=== PATIENT | male | born 1990 | race Hispanic/Latino ===

== ENCOUNTER → 2016-04-11 | Day surgery (SDC) | payer OTHER ==
[~2016-04-11] VITALS: Ht 170.2 cm; Wt 68.0 kg
[~2016-04-11] MED LIST: ASPI325T PO; BACITRACIN OINT 30GM As Ordered ONE; BACITRACIN OINT 30GM TOP ONE; BACT800T5 PO; BACTRIM 160MG/800MG DS TAB PO SCH; BUPIVACAINE HCL 0.25% 30 ML VIAL As Ordered ONE; BUPIVACAINE HCL 0.25% 30 ML VIAL XX ONE; DOXY10CA PO; ESCI10TA2 PO; FLON1SPR; LIDOCAINE 1% SDV INJ 30 ML VIAL As Ordered ONE; LIDOCAINE 1% SDV INJ 30 ML VIAL XX ONE; LIDOCAINE 2% INJ 100 MG/5 ML SDV (FOR ANES.) As Ordered ONE; LR 1,000 ML IV SCH; MIDAZOLAM INJ 2 MG/2 ML VIAL (J2250) As Ordered ONE; OLAN10TA2 PO; ONDANSETRON 4MG/2ML VIAL (J2405) As Ordered ONE; ONDANSETRON 4MG/2ML VIAL (J2405) IV PRN; PERCOCET 5MG/325MG TAB As Ordered ONE; PERCOCET 5MG/325MG TAB PO PRN; PROPOFOL 200 MG/20 ML VIAL As Ordered ONE; REFR1DRO8 OU; SALI1GEL; TRAM-533 PO; dexameTHASONE 4 MG/ML 1ML VIAL (J1100) As Ordered ONE; ePHEDrine SULFATE 25 MG/5 ML(5MG/ML) SYRINGE As Ordered ONE; fentaNYL 100 MCG/2 ML INJECTION (J3010) IV PRN; fentaNYL 250 MCG/5 ML INJECTION (J3010) As Ordered ONE; traMADol 50 MG TAB PO PRN
[2016-04-11 16:30] VITALS: BP 127/69
--- NOTE | 2016-04-12 13:31 | RO ---
DATE OF PROCEDURE: 04/11/2016 PREOPERATIVE DIAGNOSIS: Phimosis. POSTOPERATIVE DIAGNOSIS: Phimosis. FINDINGS: Phimosis. PROCEDURE: Circumcision. SURGEON: Dr. Fritz Bray. TIRE AND TUBE REPAIRER: None. ANESTHESIA: General. COMPLICATIONS: None. ESTIMATED BLOOD LOSS: N/A. HISTORY OF PRESENT ILLNESS: 25-year-old male patient that has history of phimosis. For this reason, he has consented for a circumcision. DESCRIPTION OF PROCEDURE: In a patient under general anesthesia in supine position, after prepping and draping the area of concern, which included the entire genitalia and abdomen, we started by doing a penile block with Marcaine 0.25% and lidocaine 2%, total of 10 mL used. We then proceeded to do incision in the dorsal aspect of the pinpoint foreskin phimosis. We then proceeded to actually hattie the foreskin and we could actually clean it with Betadine very well. At that moment in time, we did our circumferential incision 1 cm away from the sulcus of the glans and then another circumferential incision 4 cm proximal to the base and we resected for foreskin between the two incision lines. We fulgurated bleeding vessels. We sent the foreskin for permanent pathology analysis. After this, we approximated both skin borders with Chromic #3-0 separate stitches. We then placed bacitracin cream, 4 x 4 and a Coban around the penis. PLAN: The patient will pass to recovery and be sent home with antibiotic and pain medication. Followup in 3-4 days at [facility] for removal of Coban. He may not have sexual intercourse for 1 week. He cannot shower for 3 days. There were no complications during surgery.
== END | disposition home or self-care (01) ==
LOC: M SDC 09:21
PROVIDERS: ATTEND Urology
DX: N47.1 Phimosis (principal); Z88.8 Allergy status to other drugs, medicaments and biological substances
CPT/HCPCS: 54161; 88304; J0690; J1100; J2250; J2405; J3010

== ENCOUNTER 2016-06-04 08:27 | Inpatient (IN) | payer OTHER ==
[~2016-06-04] VITALS: Ht 172.7 cm; Wt 66.2 kg
[~2016-06-04 08:27] MED LIST changes: -BACITRACIN OINT 30GM As Ordered ONE; -BACITRACIN OINT 30GM TOP ONE; -BACTRIM 160MG/800MG DS TAB PO SCH; -BUPIVACAINE HCL 0.25% 30 ML VIAL As Ordered ONE; -BUPIVACAINE HCL 0.25% 30 ML VIAL XX ONE; -LIDOCAINE 1% SDV INJ 30 ML VIAL As Ordered ONE; -LIDOCAINE 1% SDV INJ 30 ML VIAL XX ONE; -LIDOCAINE 2% INJ 100 MG/5 ML SDV (FOR ANES.) As Ordered ONE; -LR 1,000 ML IV SCH; -MIDAZOLAM INJ 2 MG/2 ML VIAL (J2250) As Ordered ONE; -ONDANSETRON 4MG/2ML VIAL (J2405) As Ordered ONE; -ONDANSETRON 4MG/2ML VIAL (J2405) IV PRN; -PERCOCET 5MG/325MG TAB As Ordered ONE; -PERCOCET 5MG/325MG TAB PO PRN; -PROPOFOL 200 MG/20 ML VIAL As Ordered ONE; -dexameTHASONE 4 MG/ML 1ML VIAL (J1100) As Ordered ONE; -ePHEDrine SULFATE 25 MG/5 ML(5MG/ML) SYRINGE As Ordered ONE; -fentaNYL 100 MCG/2 ML INJECTION (J3010) IV PRN; -fentaNYL 250 MCG/5 ML INJECTION (J3010) As Ordered ONE; -traMADol 50 MG TAB PO PRN
[2016-06-04] MEDS ORDERED: OPTI0.5D5 OU (09:02)
[2016-06-04] MEDS ORDERED: KETO0.02 OU ×2 (09:02→15:18)
[2016-06-04 09:49] LABS: BASO % 0.1 % (0.0-1.0); EOS % 0.4 % (0.0-3.0); LARGE UNSTAINED CELL # 0.2 K/mm3 (0.0-0.4); LARGE UNSTAINED CELL % 2.4 % (0.0-4.0); LYMPH # 1.4 K/mm3 (1.5-6.5); LYMPH % 18.3 % (24.0-44.0); MEAN CORPUSCULAR HEMOGLOBIN 26.2 pg (27.0-33.0); MEAN CORPUSCULAR HGB CONC 33.3 g/dl (32.0-36.5); MEAN CORPUSCULAR VOLUME 78.6 fl (80.0-96.0); MONO # 0.5 K/mm3 (0.0-0.8); MONO % 5.7 % (0.0-5.0); NEUTROPHILS # 5.7 K/mm3 (1.8-7.7); NEUTROPHILS % 73.1 % (36.0-66.0); PLATELET COUNT, AUTOMATED 225 k/mm3 (150-450); RED CELL DISTRIBUTION WIDTH 12.4 % (11.5-14.5); WHITE BLOOD COUNT 7.8 K/mm3 (4.0-10.0)
--- NOTE | 2016-06-04 10:04 | REP ---
PORTABLE CHEST X-RAY: Single view. HISTORY: Altered mental status. Comparison study March 01, 2016. FINDINGS: EKG monitoring electrodes overlie the chest. The lungs well inflated and clear. Heart is not enlarged. Pulmonary vasculature is not increased. No bony abnormalities seen. IMPRESSION: Negative portable chest x-ray. Signed by Jeremiah Franz MD 06/04/2016 02:28 P
[2016-06-04 10:10] LABS: ALBUMIN 4.1 GM/DL (3.2-5.2); ALBUMIN/GLOBULIN RATIO 0.91 (1.00-1.93); ALKALINE PHOSPHATASE 76 U/L (45-117); ALT/SGPT 22 U/L (12-78); ANION GAP 11 MEQ/L (8-16); AST/SGOT 5 U/L (15-37); BILIRUBIN,DIRECT 0.2 MG/DL (0.0-0.2); BLOOD UREA NITROGEN 11 MG/DL (7-18); CALCIUM LEVEL 8.8 MG/DL (8.5-10.1); CARBON DIOXIDE LEVEL 25 MEQ/L (21-32); CHLORIDE LEVEL 106 MEQ/L (98-107); CREATININE FOR GFR 1.22 MG/DL (0.70-1.30); GLOMERULAR FILTRATION RATE > 60.0 (>60); GLUCOSE, FASTING 109 MG/DL (70-105); POTASSIUM SERUM 3.3 MEQ/L (3.5-5.1); SODIUM LEVEL 142 MEQ/L (136-145); TOTAL PROTEIN 8.6 GM/DL (6.4-8.2)
--- NOTE | 2016-06-04 10:15 | REP ---
Head CT without contrast: History: Altered mental status. Comparison study: March 01, 2016. CT findings: Bone window settings demonstrate an intact bony calvarium. There is no evidence of skull fracture or incidental bony calvarial lesion. The visualized paranasal sinuses appear clear. No intraorbital abnormality is seen. On soft tissue window setting images; the lateral, third, and fourth ventricles are normal in size and position. Souza-white differentiation pattern is normal above and below the tentorium. There are is no evidence of intracranial hemorrhage. No mass, edema, infarction, or midline shift is seen. No extra-axial fluid collection is appreciated. Impression: Negative noncontrast head CT. Signed by Jeremiah Franz MD 06/04/2016 10:07 A
[2016-06-04 10:18] LABS: METHADONE URINE NEGATIVE (NEGATIVE)
[2016-06-04 10:19] LABS: CONTROL LINE INT CTR LINE PRESENT; TRICYCLIC ANTIDEPRESS URINE NEGATIVE (NEGATIVE)
[2016-06-04] MEDS ORDERED: ONDANSETRON 4MG/2ML VIAL (J2405) IV PRN (15:15)
[2016-06-04] MEDS ORDERED: POTASSIUM CHLORIDE 10 MEQ SR TABLET PO ONE (15:30)
--- NOTE | 2016-06-04 15:35 | HPE ---
DATE OF ADMISSION: 06/04/2016 This is a patient of [facility]. Chief complaint is loss of consciousness. The following is a summary of his presentation: This is a 26-year-old who has been undergoing workup for repeated loss of consciousness. He has lost consciousness three times. He has been following with a neurologic workup and was thought to have some sort of perhaps narcolepsy, had been seen at Dr. Sampson's office. Last night was feeling well, was at home watching Netflix, the next thing he knows he is in the emergency department today. He has had a headache for about a week, it is not unusual for him to have a headache. He says he has not been taking Tylenol for it, although his Tylenol level is elevated. Past medical history is notable for phimosis and suicidal ideation with admission. Past surgical history is notable for circumcision. Home medications are listed as: - Refresh eye drops ALLERGIES: He has an allergy listed to AMITRIPTYLINE. Socially, he denies smoking or alcohol. He is active duty in the [employer]. Family history is notable for a mother and father, who he is unaware of their health status. Review of systems is somewhat limited but he has generalized headache which is throbbing, not better or worse, not associated with neck pain or stiffness. No fever or chills. He has been eating and drinking. No abdominal pain. No chest pain. No change in bowel or bladder habits. No focal weakness. Does not know if he has had seizures. Otherwise unremarkable. On physical exam, temperature was 100 upon arrival, has not been rechecked, heart rate 80, respiratory rate 18, blood pressure 133/62. He is awake and appropriately interactive, pleasantly conversant, somewhat flattened affect. Head is normocephalic. Sinuses are nontender. Pupils equally round and reactive, anicteric, noninjected. Nasal septum is midline. Mucous membranes moist. Neck supple, no cervical or supraclavicular adenopathy. Breathing is symmetrical and rested, I:E ratio is 1:3. No wheezes, rales, or rhonchi. Heart is in regular rate and rhythm, not tachycardic. Abdomen soft, doughy, nontender. No lower extremity edema. Strength is symmetrical in upper and lower extremities. Cranial nerves II-XII are grossly intact. White cell count 7.8, hemoglobin 13.9, and platelets 225. Sodium 142, potassium 3.3, chloride 106, carbon dioxide 25, BUN 11, creatinine 1.22. Urinalysis is notable for 2+ blood with a Cramer catheter in place. His salicylate level is less than 1.7. Tylenol level is 38. Ethyl alcohol level is 0.06. Rest of the toxicology screen is negative. Chest xray is remarkably unremarkable. Head CT is negative. My assessment is as follows: This is a 26-year-old with unresponsive episode, currently undergoing neurologic workup. Patient will require a two midnight hospital stay for further diagnostic study and workup. Plan will be as follows: 1. Neurologic. Patient had an unresponsive episode and apparently had an MRI done as an outpatient, may or may not have had an EEG done as an outpatient. Not on any antiepileptic drugs. Will consult neurology and put him on seizure precautions. Also will continue on telemetry. There is not a good family history so cannot rule out any cardiac findings. He has had previous EKGs but has never had an echocardiogram, which will be ordered to look for structural heart disease, which I believe findings for that will be negative. 2. Patient has an elevated Tylenol level. Will repeat the level at 4 hours and consider Mucomyst dosing. He does have a history of suicidal ideation and the thought that this could be an overdose does occur to me. 3. Deep venous thrombosis (DVT) prophylaxis has been ordered. 4. This patient will be signed out to Dr. Thierry Espinal.
[2016-06-04] MEDS: NS 1,000 ML IV SCH ×2 (15:40→21:44)
[2016-06-04] MEDS ORDERED: ACETYLCYSTEINE 20% 30 ML VIAL PO ONE (16:00)
[2016-06-04] MEDS ORDERED: ACETYLCYSTEINE 20% 30 ML VIAL PO SCH (20:00)
--- NOTE | 2016-06-04 20:41 | ECGEPIP ---
Stationary ECG Study [facility] - ED Test Date: 2016-06-04 Pat Name: PRETTY JO Department: Room: - Gender: M Hide Examiner: CHANDRA : 1990 Requested By: PANFILO Delacruz Order Number: [id number] Reading MD: Aiden Morton Measurements Intervals [place] Rate: 84 P: 67 KS: 156 QRS: 71 QRSD: 107 T: 53 QT: 346 QTc: 410 Interpretive Statements SINUS RHYTHM WITH SINUS ARRHYTHMIA LAE EARLY REPOLARIZATION SIMILAR TO 03/02/16 Electronically Signed On 06-04-2016 20:40:56 EST by Aiden Morton
[2016-06-04 21:17] VITALS: BP 135/94
[2016-06-04 23:59] VITALS: BP 134/74
[2016-06-05] MEDS ORDERED: ACETYLCYSTEINE IV ONE (01:30)
[2016-06-05] MEDS ORDERED: D5W IV ONE (01:30)
[2016-06-05 03:56] VITALS: BP 147/85
[2016-06-05 05:30] LABS: MEAN CORPUSCULAR HEMOGLOBIN 26.1 pg (27.0-33.0); MEAN CORPUSCULAR HGB CONC 33.1 g/dl (32.0-36.5); MEAN CORPUSCULAR VOLUME 78.9 fl (80.0-96.0); RED CELL DISTRIBUTION WIDTH 12.7 % (11.5-14.5); WHITE BLOOD COUNT 8.4 K/mm3 (4.0-10.0)
[2016-06-05] MEDS ORDERED: ACETYLCYSTEINE 6,600 MG in D5W 1,000 ML IV ONE (05:30)
--- NOTE | 2016-06-05 05:41 | ECHO ---
DATE OF PROCEDURE: 06/04/2016 REFERRING PHYSICIAN: Dr. Francisco Dutton. INDICATION: Syncope. HEIGHT: 67 inches. WEIGHT: 146 pounds. MEASUREMENTS: Aortic root: 2.6 cm Proximal ascending aorta: 2.8 cm Left atrium: 2.3 cm Left ventricle diastole: 4.2 cm Left ventricle systole: 2.7 cm Ventricular septum: 0.89 cm Posterior wall: 0.86 cm Inferior vena cava: 1.7 cm with much greater than 50% respiratory variation. DOPPLER MEASUREMENTS: Aortic valve velocity: 128 cm/s LVOT velocity: 127 cm/s LVOT VTI: 23.2 cm Mitral E velocity: 70.7 cm/s Mitral A velocity: 35.6 cm/s Very mild tricuspid regurgitation Estimated right ventricular systolic pressure 17 mmHg assuming an atrial pressure of 5 mmHg. Pulmonary artery systolic pressure 12 mmHg by pulmonary acceleration time method. MITRAL ANNULAR TISSUE DOPPLER: E-prime lateral: 14.0 cm/s E-prime septal: 11.2 cm/s DESCRIPTION: Rhythm was sinus. Image quality was fair. No pericardial effusion. This was a 2D, M-m0de, color flow Doppler and pulsed wave Doppler examination and included mitral annular tissue Doppler. CONCLUSIONS: 1. Normal echocardiogram Doppler. 2. Normal LV internal dimensions and wall thickness. Normal LV systolic function. LVEF 65% by visual estimate. No regional wall motion abnormalities. Normal LV diastolic function.
[2016-06-05 05:53] LABS: ALBUMIN 3.6 GM/DL (3.2-5.2); ALBUMIN/GLOBULIN RATIO 1.09 (1.00-1.93); ALKALINE PHOSPHATASE 57 U/L (45-117); ALT/SGPT 16 U/L (12-78); ANION GAP 8 MEQ/L (8-16); AST/SGOT 12 U/L (15-37); BLOOD UREA NITROGEN 8 MG/DL (7-18); CALCIUM LEVEL 8.5 MG/DL (8.5-10.1); CARBON DIOXIDE LEVEL 27 MEQ/L (21-32); CHLORIDE LEVEL 106 MEQ/L (98-107); CREATININE FOR GFR 1.05 MG/DL (0.70-1.30); GLOMERULAR FILTRATION RATE > 60.0 (>60); GLUCOSE, FASTING 107 MG/DL (70-105); POTASSIUM SERUM 3.7 MEQ/L (3.5-5.1); SODIUM LEVEL 141 MEQ/L (136-145); TOTAL PROTEIN 6.9 GM/DL (6.4-8.2)
[2016-06-05 07:50] VITALS: BP 129/73
[2016-06-05] MEDS: ENOXAPARIN 40 MG/0.4 ML SYRINGE (J1650) SC SCH (08:43)
--- NOTE | 2016-06-05 11:12 | IPNPDOC ---
Subjective Date Seen The patient was seen on 06/05/16. Subjective Chief Complaint/HPI The patient is a 26-year-old male admitted with a reason for visit of AMS. General: Denies: Chills, Night Sweats Constitutional: Denies: Chills, Fever Eyes: Denies: Pain, Vision change ENT: Denies: Ear Pain, Head Aches Skin: Denies: Lesions, Rash Pulmonary: Denies: Cough, Dyspnea Cardiovascular: Denies: Chest Pain, Palpitations Gastrointestinal: Denies: Nausea, Vomiting Genitourinary: Denies: Dysuria, Frequency Hematologic: Denies: Bleeding Excessively, Bruising Objective Physical Examination General Exam: Positive: Alert, Cooperative, No Acute Distress ENT Exam: Positive: Atraumatic, Mucous membr. moist/pink Neck Exam: Negative: JVD Chest Exam: Positive: Clear to auscultation, Normal air movement Heart Exam: Positive: Normal S1, Normal S2, Rate Normal Telemetry: Positive: Sinus Abdomen Exam: Positive: Soft, Negative: Tenderness Extremity Exam: Negative: Edema, Tenderness Assessment /Plan Plan/VTE VTE Prophylaxis Ordered?: Yes Plan/Urinary Catheter Reason for insertion/continuin: Other-document below Plan Episode of Unresponsiveness 2/2 Unclear Etiology Apparently the patient has had an extensive outpatient neurological workup for such events with Dr. Sampson of neurology including an MRI, and an EEG which did not reveal any acute findings. Of note, the patient has had multiple events such as this one, which have required him to be hospitalized. The patient was recently seen here for a similar presentation, with concern for a possible overdose at the time back in March/2016, during which the patient was admitted to the inpatient mental health unit after being medically cleared. At this time, the patient denies taking any medications-however he is noted to have an elevated serum acetaminophen level on admission. He denies taking any Tylenol for over 2 months. Neurology consulted in the ER, they have recommended a repeat EEG We will obtain a psychiatric consultation in view of the patient's unclear presentation, elevated Tylenol levels, and history of overdose. Status post Mucomyst 3 2-D echocardiogram here noted to be within normal limits We will continue to monitor the patient on telemetry for now. VS, I&O, 24H, Fishbone Vital Signs/I&O Vital Signs Date Time Temp Pulse Resp B/P Pulse Ox O2 Delivery O2 Flow Rate FiO2 06/05/16 07:50 96.8 52 20 129/73 98 Room Air I&O- Last 24 Hours up to 6 AM 06/05/16 06:00 Intake Total 240 ml Output Total 250 ml Balance -10 ml Laboratory Data 24H LABS Laboratory Tests 2 06/04/16 15:14: Acetaminophen Level 20.2 06/05/16 05:18: Blood Urea Nitrogen 8, Creatinine 1.05, Sodium Level 141, Potassium Level 3.7, Chloride Level 106, Carbon Dioxide Level 27, Calcium Level 8.5, Aspartate Amino Transf (AST/SGOT) 12L, Alanine Aminotransferase (ALT/SGPT) 16, Alkaline Phosphatase 57, Total Bilirubin 1.0, Total Protein 6.9, Albumin 3.6, Albumin/ Globulin Ratio 1.09, Anion Gap 8, Glomerular Filtration Rate > 60.0, Magnesium Level 2.0 CBC/BMP Laboratory Tests 06/05/16 05:18 Calcium Level 8.5, Aspartate Amino Transf (AST/SGOT) 12 L, Alanine Aminotransferase (ALT/SGPT) 16, Alkaline Phosphatase 57, Total Bilirubin 1.0, Total Protein 6.9, Albumin 3.6, Red Blood Count 5.24, Mean Corpuscular Volume 78.9 L, Mean Corpuscular Hemoglobin 26.1 L, Mean Corpuscular Hemoglobin Concent 33.1, Red Cell Distribution Width 12.7 JYOTSNA BRADY MD Jun 05, 2016 11:12
[2016-06-05 12:00] VITALS: BP 121/67
[2016-06-05 15:30] VITALS: BP 131/65
[2016-06-05 20:00] VITALS: BP 117/71
[2016-06-05 23:59] VITALS: BP 147/68
[2016-06-06 04:00] VITALS: BP 123/68
[2016-06-06 05:57] LABS: MEAN CORPUSCULAR HEMOGLOBIN 26.1 pg (27.0-33.0); MEAN CORPUSCULAR HGB CONC 32.5 g/dl (32.0-36.5); MEAN CORPUSCULAR VOLUME 80.4 fl (80.0-96.0); RED CELL DISTRIBUTION WIDTH 12.8 % (11.5-14.5); WHITE BLOOD COUNT 7.3 K/mm3 (4.0-10.0)
[2016-06-06 06:22] LABS: ALBUMIN 3.7 GM/DL (3.2-5.2); ALBUMIN/GLOBULIN RATIO 1.16 (1.00-1.93); ALKALINE PHOSPHATASE 63 U/L (45-117); ALT/SGPT 16 U/L (12-78); ANION GAP 9 MEQ/L (8-16); AST/SGOT 15 U/L (15-37); BILIRUBIN,TOTAL 0.5 MG/DL (0.2-1.0); BLOOD UREA NITROGEN 10 MG/DL (7-18); CALCIUM LEVEL 8.9 MG/DL (8.5-10.1); CARBON DIOXIDE LEVEL 26 MEQ/L (21-32); CHLORIDE LEVEL 107 MEQ/L (98-107); CREATININE FOR GFR 1.12 MG/DL (0.70-1.30); GLOMERULAR FILTRATION RATE > 60.0 (>60); GLUCOSE, FASTING 88 MG/DL (70-105); POTASSIUM SERUM 3.8 MEQ/L (3.5-5.1); SODIUM LEVEL 142 MEQ/L (136-145); TOTAL PROTEIN 6.9 GM/DL (6.4-8.2)
--- NOTE | 2016-06-06 07:56 | EEG ---
DATE OF PROCEDURE: 06/05/2016 REFERRING PHYSICIAN: Dr. Thierry Espinal DIAGNOSIS: Unresponsiveness. EEG NUMBER: [id number]. HISTORY: Patient is 26-year-old man with a history of episodes of loss of consciousness of unclear etiology. He complains of headaches. This EEG was done to rule out epileptic potential. He is currently on Zofran and acetylcysteine. TECHNICAL DESCRIPTION: This digital EEG was recorded by 21 scalp, ear and two EKG electrodes and was reviewed in bipolar and referential montages following reformatting in 10-20 international electrode placement system. INTERPRETATION: Patient was noted to be in awake and drowsy states during this EEG. Resting awake background consisted of well-formed posterior dominant rhythm with anterior/posterior gradient comprising of 11 Hz alpha activity measuring 30-100 microvolts in amplitude, which was symmetric and reactive to eye opening. Stage I and II sleep were revealed and were symmetric bilaterally. Hyperventilation could not be performed. Photic stimulation remained unremarkable. EKG revealed normal sinus rhythm. No focal, lateralizing or epileptiform abnormalities were seen. No clinical or electrographic seizures were recorded. CONCLUSION: This EEG in awake, drowsy states, stage I and II sleep is within normal limits.
[2016-06-06 08:00] VITALS: BP 118/71
[2016-06-06] MEDS: ENOXAPARIN 40 MG/0.4 ML SYRINGE (J1650) SC SCH (10:03)
[2016-06-06 11:27] VITALS: BP 138/84
--- NOTE | 2016-06-06 14:34 | IPNPDOC ---
Subjective Date Seen The patient was seen on 06/06/16. Subjective Chief Complaint/HPI The patient is a 26-year-old male admitted with a reason for visit of AMS. General: Denies: Chills, Night Sweats Constitutional: Denies: Chills, Fever Eyes: Denies: Pain, Vision change ENT: Denies: Ear Pain, Head Aches Skin: Denies: Lesions, Rash Pulmonary: Denies: Cough, Dyspnea Cardiovascular: Denies: Chest Pain, Palpitations Gastrointestinal: Denies: Nausea, Vomiting Genitourinary: Denies: Dysuria, Frequency Hematologic: Denies: Bleeding Excessively, Bruising Musculoskeletal: Denies: Back Pain, Neck Pain Objective Physical Examination General Exam: Positive: Alert, Cooperative, No Acute Distress ENT Exam: Positive: Atraumatic, Mucous membr. moist/pink Neck Exam: Negative: JVD Chest Exam: Positive: Clear to auscultation, Normal air movement Heart Exam: Positive: Normal S1, Normal S2, Rate Normal Telemetry: Positive: Sinus Abdomen Exam: Positive: Soft, Negative: Tenderness Extremity Exam: Negative: Edema, Tenderness Assessment /Plan Plan/VTE VTE Prophylaxis Ordered?: Yes Plan/Urinary Catheter Reason for insertion/continuin: Other-document below Plan Episode of Unresponsiveness 2/2 Unclear Etiology Apparently the patient has had an extensive outpatient neurological workup for such events with Dr. Sampson of neurology including an MRI, and an EEG which did not reveal any acute findings. Of note, the patient has had multiple events such as this one, which have required him to be hospitalized. The patient was recently seen here for a similar presentation, with concern for a possible overdose at the time back in March/2016, during which the patient was admitted to the inpatient mental health unit after being medically cleared. At this time, the patient denies taking any medications-however he is noted to have an elevated serum acetaminophen level on admission. He denies taking any Tylenol for over 2 months. Status post Mucomyst 3 Neurology consulted and their input has been appreciated Repeat EEG as per Neuro's recommendation has been within normal limits 2-D echocardiogram here noted to be within normal limits Psychiatry consulted for possibly Tylenol overdose, and history of overdoses requiring [facility] hospitalization in the past. VS, I&O, 24H, Fishbone Vital Signs/I&O Vital Signs Date Time Temp Pulse Resp B/P Pulse Ox O2 Delivery O2 Flow Rate FiO2 06/06/16 11:27 96.9 56 18 138/84 99 Room Air I&O- Last 24 Hours up to 6 AM 06/06/16 06:00 Intake Total 2040 ml Output Total 2000 ml Balance 40 ml Laboratory Data 24H LABS Laboratory Tests 2 06/05/16 20:11: Acetaminophen Level < 2.0L 06/06/16 05:28: Blood Urea Nitrogen 10, Creatinine 1.12, Sodium Level 142, Potassium Level 3.8, Chloride Level 107, Carbon Dioxide Level 26, Calcium Level 8.9, Aspartate Amino Transf (AST/SGOT) 15, Alanine Aminotransferase (ALT/SGPT) 16, Alkaline Phosphatase 63, Total Bilirubin 0.5, Total Protein 6.9, Albumin 3.7, Albumin/ Globulin Ratio 1.16, Anion Gap 9, Glomerular Filtration Rate > 60.0, Magnesium Level 2.0 CBC/BMP Laboratory Tests 06/06/16 05:28 Calcium Level 8.9, Aspartate Amino Transf (AST/SGOT) 15, Alanine Aminotransferase (ALT/SGPT) 16, Alkaline Phosphatase 63, Total Bilirubin 0.5, Total Protein 6.9, Albumin 3.7, Red Blood Count 5.42, Mean Corpuscular Volume 80.4, Mean Corpuscular Hemoglobin 26.1 L, Mean Corpuscular Hemoglobin Concent 32.5, Red Cell Distribution Width 12.8 JYOTSNA BRADY MD Jun 06, 2016 14:34
--- NOTE | 2016-06-07 15:46 | DS.PDOC ---
Discharge Summary General Date of Admission Jun 04, 2016 at 15:12 Date of Discharge Jun 06, 2016 at 17:30 Specialist/Consultants Involve Dr. Winter of Neurology, Dr. Conway of Psychiatry Discharge Summary PROCEDURES PERFORMED DURING STAY: None. ADMITTING DIAGNOSES: 1. . Possible Tylenol overdose 2. . Episode of unresponsiveness 3. . Alteration in mental status DISCHARGE DIAGNOSES: 1. . Possible Tylenol overdose 2. . Episode of unresponsiveness 3. . Alteration in mental status COMPLICATIONS/CHIEF COMPLAINT: AMS. HISTORY OF PRESENT ILLNESS: . 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 The patient was noted to have 3 similar episodes over the past 6 months. The patient stated at the time in the ER that he does not recollect the events that led to him having the alteration in mental status. The patient denies taking any kind of medications prior to this episode. He stated that he did not take Tylenol for at least 3 months prior to this event. In the ER, a toxicology screen was noted to be positive for an elevated acetaminophen level. The patient was admitted to the hospitalist service for further evaluation and management. During the patient's hospitalization here, the patient was treated with 3 doses of Mucomyst for the elevated serum acetaminophen level. In addition, neurology was consulted to help evaluate for other possible causes of the patient's periods of unresponsiveness. Of note, the patient has had an extensive outpatient neurological workup with Dr. Sampson including MRI and EEG studies which did not yield any acute findings. We did repeat an EEG here, which was noted to be within normal limits. The patient had no acute events on the component inspector. In addition, there were no other acute findings noted in the patient's laboratory work or clinical presentation while admitted under the inpatient service. Given the patient's history of overdose attempts in the past, and elevated serum acetaminophen level on the toxicology screening, a psychiatry consult was placed. The patient was then transferred to the inpatient mental health unit for further psychiatric stabilization. DISCHARGE MEDICATIONS: Please see below. ALLERGIES: Please see below. PHYSICAL EXAMINATION ON DISCHARGE: VITAL SIGNS: Please see below. General Exam: Positive: Alert, Cooperative, No Acute Distress ENT Exam: Positive: Atraumatic, Mucous membr. moist/pink Neck Exam: Negative: JVD Chest Exam: Positive: Clear to auscultation, Normal air movement Heart Exam: Positive: Normal S1, Normal S2, Rate Normal Telemetry: Positive: Sinus Abdomen Exam: Positive: Soft, Negative: Tenderness Extremity Exam: Negative: Edema, Tenderness LABORATORY DATA: Please see below. IMAGING: Head CT without contrast: History: Altered mental status. Comparison study: March 01, 2016. CT findings: Bone window settings demonstrate an intact bony calvarium. There is no evidence of skull fracture or incidental bony calvarial lesion. The visualized paranasal sinuses appear clear. No intraorbital abnormality is seen. On soft tissue window setting images; the lateral, third, and fourth ventricles are normal in size and position. Souza-white differentiation pattern is normal above and below the tentorium. There are is no evidence of intracranial hemorrhage. No mass, edema, infarction, or midline shift is seen. No extra-axial fluid collection is appreciated. Impression: Negative noncontrast head CT. PROGNOSIS: Medically stable at this time ACTIVITY: As tolerated. DIET: . As tolerated DISCHARGE PLAN: DISPOSITION: 65 [facility]. DISCHARGE INSTRUCTIONS: 1. . Follow-up with psychiatry in inpatient mental health unit for further psychiatric stabilization 2. . 3. . DISCHARGE CONDITION: Stable. TIME SPENT ON DISCHARGE: Greater than 30 minutes. Vital Signs/I&Os Vital Signs Date Time Temp Pulse Resp B/P Pulse Ox O2 Delivery O2 Flow Rate FiO2 06/06/16 11:27 96.9 56 18 138/84 99 Room Air I&O- Last 24 Hours up to 6 AM 06/07/16 06:00 Intake Total 300 ml Output Total 500 ml Balance -200 ml Discharge Medications Scheduled (Ketotifen Fumarate) 0.025 % Jass 1 DROP OU BID (Reported) Scheduled PRN Carboxymethylcellulose Sod (Refresh 1.4-0.6 %) 1 Ea Mari 1 EA OU QID PRN PRN DRY EYES (Reported) Allergies Coded Allergies: Amitriptyline (Unverified Allergy, Severe, SEVERE DEPRESSION; AMNESIA, 04/06) JYOTSNA BRADY MD Jun 07, 2016 15:46
== END 2016-06-06 17:30 | DRG 918 ==
LOC: EDBD 08:27 → M ED 08:50 → M ED INP 15:12 → M PCU 21:06
PROVIDERS: ADMIT Internal Medicine; ATTEND Internal Medicine
DX: T39.1X1A Poisoning by 4-Aminophenol derivatives, accidental (unintentional), initial encounter (principal); R51 Headache; R41.82 Altered mental status, unspecified; Y92.009 Unspecified place in unspecified non-institutional (private) residence as the place of occurrence of the external cause; Z88.8 Allergy status to other drugs, medicaments and biological substances

== ENCOUNTER 2016-06-06 17:35 | Inpatient (IN) | payer OTHER ==
[~2016-06-06] VITALS: Ht 172.7 cm; Wt 64.4 kg
[~2016-06-06 17:35] MED LIST changes: +KETO0.02 OU; +OPTI0.5D5 OU
[2016-06-06 17:43] VITALS: BP 156/83
[2016-06-06] MEDS ORDERED: traZODone 50 MG TAB PO PRN (18:45)
[2016-06-06] MEDS ORDERED: MOM 30ML SUSPENSION UDC PO PRN (18:45)
[2016-06-06] MEDS ORDERED: ACETAMINOPHEN TAB 650MG DOSE (2X325MG) PO PRN (18:45)
[2016-06-06] MEDS ORDERED: MAALOX 30 ML SUSP *UDC PO PRN (18:45)
[2016-06-07 06:48] VITALS: BP 111/56
[2016-06-07] MEDS: KETOTIFEN OU SCH ×2 (09:00→21:00)
--- NOTE | 2016-06-07 09:11 | CR ---
DATE OF CONSULTATION: 06/06/2016 HISTORY OF PRESENT ILLNESS: 26-year-old male with a history of two previous admissions to our unit. The first one was in December 2015. It was documented at that time that the patient was taking amitriptyline for treatment of phimosis and pain. He came to the emergency room being unresponsive and apparently he took an overdose of amitriptyline. It is documented by Dr. Myles, the consulting psychiatrist that saw him on the medical floor, that the patient took the whole bottle of amitriptyline, but then later on he stated in our unit that he probably was confused and does not remember exactly how many he took and he denied feeling depressed. In March 2016, he was admitted again to our unit. It is documented that he was found confused with slurred speech, unsteady gait and altered consciousness. The staff at [place] reported that he was depressed with blunted affect. He was showing signs of lethargy and altered level of consciousness. It is also described that he was a poor historian, that he had no recollection of the events prior to the apparent overdose. He denied that he took an overdose of Zyprexa or Lexapro. He has been followed by neurology apparently for a diagnosis of sleep disorder, sleep paralysis or narcolepsy, it is not clear. This time he was admitted to the medical floor on 06/04/2016. It is reported that the patient lost consciousness three times. He has been having further neurologic workup by Dr. Sampson and everything has been within normal limits. It is reported that the night before admission that he was watching Netflix and the next thing he knows is that "He is at the emergency department today." He reports having a headache, which is unusual for him. He denies that he has been taking Tylenol, but his Tylenol level was 38. During the interview today, the patient continues denying that he has taken an overdose. He denies that he is depressed; however, he does not know why his Tylenol level was 38. He has no support in town, all of his relatives are in [place]. No collateral information from a relative was available. During the interview, there is no evidence of auditory or visual hallucinations or delusions. The patient is focused on going home and denies any suicidal or homicidal ideation. PAST MEDICAL HISTORY: He has been diagnosed with phimosis and had surgery. He complained of thrombosis in the arms in the past. PAST PSYCHIATRIC HISTORY: As above, this is his third presentation for a possible overdose. The first time he said to the consultation psychiatrist that he took a whole bottle of amitriptyline but then he denied. The second time he denied overdose, but he was found confused with slurred speech, unsteady gait, and altered consciousness. Apparently, he never had any psychiatric history before December 2015. FAMILY HISTORY: His mother had some psychiatric problems but he does not know the diagnosis. SOCIAL HISTORY: The patient was born in [place]. He was adopted to a foster care family in [place]. He lived with them until age 16. He stated that he was a troublemaker. He denied any history of abuse or trauma. He had difficulty remembering his childhood. He graduated high school. The patient has a history of being homeless for 1 to 2 years. He was living out of his car. He does have some siblings, but the contact is minimal. He said that he has a good relationship with his father, who is his stepfather. SUBSTANCE ABUSE HISTORY: The patient denies any problems with drugs or alcohol. LABORATORY DATA: At admission, CBC showed a hemoglobin of 13.9, hematocrit of 41.9, MCV of 78.6, rest within normal limits. CMP was unremarkable except potassium of 3.3 that was supplemented. Urine drug screen was negative. Blood alcohol level was negative. His Tylenol level on admission was 38. MENTAL STATUS EXAMINATION The patient is dressed in [facility]. The patient is cooperative but is somewhat irritable and frustrated because he does not want to be admitted to inpatient mental health unit. His speech is clear, coherent, with normal rate and is spontaneous. Has fair eye contact. The patient's mood is anxious. He denies depression. Affect is labile. The patient is oriented to time, place, person and situation. Attention and concentration are fair. Instant recall, recent and remote memory during the interview is fair, but he has no recollection of what happened before admission. Patient does not have auditory or visual hallucinations. Patient does not have paranoid, persecutory, somatic, grandiose or restorationism delusions. Patient is denying suicidal or homicidal ideation; however, his Tylenol level on admission was 38. Judgment and insight are poor. ASSESSMENT: Eckerty I: Unspecified depressive disorder. Rule out major depressive disorder versus adjustment disorder with depressed mood. Eckerty II: Deferred. Eckerty III: Status post overdose on Tylenol. RECOMMENDATIONS: Given the fact that the patient has a history of overdose with amitriptyline and another admission for overdose and now his Tylenol level is 38 and it is not clear if he has taken an overdose, the patient will be transferred to the psychiatric unit for further treatment and evaluation.
--- NOTE | 2016-06-07 11:50 | HPEPDOC ---
Medical History and Physical Date of Admission Jun 06, 2016 at 17:35 History and Physical PCP: [facility] ATTENDING: Dr. Francisco Dutton HPI: 25yoM admitted to [facility] for unspecified depressive disorder, being medically examined today. Patient was admitted to [facility] from 06/04/16 to 06/06/16 related to episode of loss of consciousness. He was felt stable for transfer to [facility] 06/06/16. The patient is reluctant to provide any further history regarding his episode and states "I have answered all of these questions four times, look it up in the chart". He has no specific concerns today. Denies any fevers, chills, weakness, fatigue , THOMAS, CP, SOB, cough, palpitations, abdominal pain, N/V/D or changes in bowel or bladder habits. History is taken from the chart. PMHx: Depression History of headache. NCN History of loss of consciousness-following with NCN for further workup. Dry eyes Phimosis/ s/p circumcision [facility] urology PSHX: Circumcision SOCHX: Resides in: [place], from [place] Marital Status: Single Kids: None Employment: Active duty, [employer]. Tobacco use: Denies ETOH: Denies Illicit Drugs: Denies IV Drug Use: Denies Tattoos done unprofessionally: Denies FAMHX: Mother: Alive, well Father: Stepfather Alive, well Siblings: 2 brothers, one sister Alive, unknown Children: None Unexpected deaths due to medical reasons: None. ROS: As noted in HPI, otherwise 11pt ROS of systems reviewed and unremarkable. PE: GEN: 25 yo M, appears stated age. Well-nourished, well developed. No acute distress. Alert and oriented x 3. Pleasant, interactive. HEENT: Normocephalic, atraumatic. Pupils are equal, round, and reactive to light. Extraocular movements are intact. No nystagmus appreciated. Sclera are nonicteric. Conjunctiva without injection. Nose midline. EACs both patent BL. TMs both visualized and toscano with good cone of light, no bulging or erythema. No facial asymmetry. Moist mucous membranes. Dentition fair. Pharynx pink and moist, no cobblestoning. Neck supple, trachea midline. No lymphadenopathy or thyromegaly appreciated. CHEST: Regular rate and rhythm, +S1, +S2 LUNGS: Clear to auscultation bilaterally. No wheezes, rales, or rhonchi. Breathing appears symmetric and easy. Patient is speaking in full sentences. No accessory muscle use. ABD: Round, soft, non-tender, non-distended. +Bowel sounds throughout. No rebound or guarding. No costovertebral angle tenderness. EXT: Pulses 2+ bilaterally dorsalis pedis and radial. No lower extremity edema appreciated. SKIN: [place], dry, warm. Capillary refill <2sec. No rashes. NEURO: Alert and oriented x 3. Cranial nerves III-XII are intact. No focal deficits appreciated. EK06/04/16 SINUS RHYTHM WITH SINUS ARRHYTHMIA LAE EARLY REPOLARIZATION SIMILAR TO 03/02/16 Echocardiogram 06/04/16 1. Normal echocardiogram Doppler. 2. Normal LV internal dimensions and wall thickness. Normal LV systolic function. LVEF 65% by visual estimate. No regional wall motion abnormalities. Normal LV diastolic function. EEG 06/05/16 This EEG in awake, drowsy states, stage I and II sleep is within normal limits. A&P: 25yoM admitted to [facility] for unspecified depressive disorder 1. Psych. Plan per Psychiatry. EKG on file. 2. H/O Phimosis. s/p circumcision. 3. Follow up with PCP on discharge. [facility]. 5. H/O LOC episodes. Seen by Neurology. MRI Brain as outpt. EEG is noted to be unremarkable. Echocardiogram is unremarkable. 6. Outpatient follow-up with neurology. 7. Dry eyes. Cont current drops. dietary aide present throughout exam, [place]. Vital Signs Vital Signs Label Value Date Time Patient Temperature 96.6 degrees F 06/07/16 0648 Temperature Source Tympanic 06/07/16 0648 Pulse 58 06/07/16 0648 Respiratory Rate 18 bpm 06/07/16 0648 Blood Pressure Assessment 111/56 (74) 06/07/16 0648 Bedside Pulse Oximetry 96 % 06/06/16 174 Item Value Date Time Oxygen Delivery Method Room Air 06/06/161742 Laboratory Data Labs 24H Item Value Date Time White Blood Count 7.3 K/mm3 06/06/16527 Red Blood Count 5.42 M/mm3 06/06/16527 Hemoglobin 14.2 g/dl 06/06/16527 Hematocrit 43.6 % 06/06/16527 Mean Corpuscular Volume 80.4 fl 06/06/16527 Mean Corpuscular Hemoglobin 26.1 pg L 06/06/16527 Mean Corpuscular Hemoglobin Concent 32.5 g/dl 06/06/16527 Red Cell Distribution Width 12.8 % 06/06/16527 Platelet Count 195 k/mm3 06/06/16527 Sodium Level 142 MEQ/L 06/06/16527 Potassium Level 3.8 MEQ/L 06/06/16527 Chloride Level 107 MEQ/L 06/06/16527 Carbon Dioxide Level 26 MEQ/L 06/06/16527 Anion Gap 9 MEQ/L 06/06/16527 Blood Urea Nitrogen 10 MG/DL 06/06/16527 Creatinine 1.12 MG/DL 06/06/16527 Glomerular Filtration Rate > 60.0 06/06/16527 Fasting Glucose 88 MG/DL 06/06/16527 Calcium Level 8.9 MG/DL 06/06/16527 Magnesium Level 2.0 MG/DL 06/06/16527 Total Bilirubin 0.5 MG/DL 06/06/16527 Aspartate Amino Transf (AST/SGOT) 15 U/L 06/06/16 05 Alanine Aminotransferase (ALT/SGPT) 16 U/L 06/06/16527 Alkaline Phosphatase 63 U/L 06/06/16527 Total Protein 6.9 GM/DL 06/06/16527 Albumin 3.7 GM/DL 06/06/16527 Albumin/Globulin Ratio 1.16 06/06/16527 Home Medications Scheduled (Ketotifen Fumarate) 0.025 % Jass 1 DROP OU BID Scheduled PRN Carboxymethylcellulose Sod (Refresh 1.4-0.6 %) 1 Ea Mari 1 EA OU QID PRN PRN DRY EYES Allergies Coded Allergies: Amitriptyline (Unverified Allergy, Severe, SEVERE DEPRESSION; AMNESIA, 04/06) Miroslava Gunter Jun 07, 2016 11:50
[2016-06-07] MEDS: POLYVINYL ALCOHOL OPHTH SOLN 15 ML(LIQUITEARS) OU SCH ×3 (13:00→21:00)
[2016-06-07 18:00] VITALS: BP 113/63
[2016-06-08 06:48] VITALS: BP 117/69
[2016-06-08] MEDS: POLYVINYL ALCOHOL OPHTH SOLN 15 ML(LIQUITEARS) OU SCH ×4 (09:00→21:00)
[2016-06-08] MEDS: KETOTIFEN OU SCH ×2 (09:00→21:00)
[2016-06-08 18:00] VITALS: BP 119/55
[2016-06-09 07:09] VITALS: BP 140/80
[2016-06-09] MEDS: KETOTIFEN OU SCH ×2 (09:00→21:00)
[2016-06-09] MEDS: POLYVINYL ALCOHOL OPHTH SOLN 15 ML(LIQUITEARS) OU SCH ×4 (09:00→21:00)
[2016-06-09 18:00] VITALS: BP 126/76
[2016-06-10 06:55] VITALS: BP 157/85
[2016-06-10] MEDS: POLYVINYL ALCOHOL OPHTH SOLN 15 ML(LIQUITEARS) OU SCH ×4 (09:00→20:46)
[2016-06-10] MEDS: KETOTIFEN OU SCH ×2 (09:00→20:46)
[2016-06-10 18:00] VITALS: BP 118/60
[2016-06-11 06:21] VITALS: BP 138/62
[2016-06-11] MEDS: KETOTIFEN OU SCH ×2 (08:44→21:00)
[2016-06-11] MEDS: POLYVINYL ALCOHOL OPHTH SOLN 15 ML(LIQUITEARS) OU SCH ×4 (08:44→21:00)
[2016-06-11] MEDS ORDERED: TRAZO50TA PO (09:38)
--- NOTE | 2016-06-11 17:05 | IPNPDOC ---
[facility] Progress Note Progress Note DATE OF SERVICE: 06/11/16 HISTORY: The patient is met with today for the first time. The patient described after much prodding his frustration with the and his blackouts. He described that he had had a sleep study earlier in November but that it was not complete. He stated that he remembered it saying that it had "increased latency". He described much disappointment with and his service therein. He describes he originally came to the to travel but found it quickly was not as a venture associated hoped it would be. 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 He described the due to his medical problems and multiple psychiatric admissions that he has not been able to perform his job. He does describe having some close friends in the local area but has no family members. He describes that any place is "better" than [place] where he is from. He additionally stated that his mother had been calling the hart and "cussing out" the nursing staff. He is currently felt as though she was upset and angered by his admission and was at a loss for how to cope with it. He described that he wished to be discharged and little interest in engaging further in conversation. He has been noted not to attend groups and when asked about this she describes that if he daydreams he will not have to focus on his admission here. He describes that this daydreaming makes him more comfortable as he "buys this time" until he is discharged. He did describe that he has had difficulty sleeping only sleeping for 2 hours at a time. He appeared much more amenable to having his sleep treated and described that he was being treated by Dr. Jay at [facility]. He described that he additionally was seeing a Mr. Su as well as the behavioral Center. He gave consent for this prior to speak to them to ascertain his situation better. He ended the interview by stating that he felt as though "no one knows me here in [place]". The nursing staff described that the patient interestingly enough cannot remember any events earlier than age 13. When asked the patient described that "people just live fast". He did not have any other explanation or answers related. Otherwise he has not caused any disruption on the hart per nursing staff over the weekend. VITAL SIGNS: See below. NEW TEST RESULTS: None. CURRENT MEDICATIONS: See below. MENTAL STATUS EXAMINATION: Patient is a 26-year old male, who is withdrawn, in an mildly disheveled. Speech: Is normal in rate volume and articulation. His speech is coherent but only answers questions when asked at first. Language skills are intact Thought processes including: Goal directed Thought content: Guarded. Abstract reasoning, and computation: Intact. Description of associations: Intact Description of abnormal or psychotic thoughts: Denies any suicidal or homicidal ideation at this time. Denies any auditory or visual hallucinations. Does not appear to be responding to internal stimuli. Judgment: Limited Insight: Limited Orientation to time place and person Recent and remote memory: Long-term, short-term and immediate memory appears to be intact as the patient remembers the events of his admission, the day and autobiographical information. Attention span and concentration: Good Language: Normal Fund of knowledge: Good. Mood: "Just fine". Affect: Irritable although reactive DIAGNOSES: 1. Unspecified depressive disorder Rule out conversion disorder, disassociative identity disorder and other trauma/ stress related disorders 2. Recurrent suicidal overdoses 3. 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 The patient has an unusual sleeping disorder and appears to demonstrate strong alexithymic affect indicative of possible trauma/stressor related disorder including conversion disorder and disassociative identity disorder. He appears generally closed often guarded to most interventions. He is not interested in taking any medications and requests discharge. He is followed by [facility] and has providers available. MANAGEMENT PLAN: 1. Patient refuses taking any medications we'll continue to provide when necessary trazodone for insomnia 2. Will attempt to get a hold of patient's outpatient provider Dr. Jay for further collateral information 3. The patient at this time is requesting discharge and refusing any suicidal ideation, however he'll need a longer inpatient stay to address his disposition and arrangement of appointments. He will need to stay longer in order to arrange for safe and stable discharge. TIME SPENT: 30 minutes. Vital Signs Vital Signs Date Time Temp Pulse Resp B/P Pulse Ox O2 Delivery O2 Flow Rate FiO2 06/11/16 06:21 96.2 61 16 138/62 06/06/16 17:43 96 Room Air Current Medications Current Medications Acetaminophen (Tylenol Tab) 650 mg Q6HP PRN PO HEADACHE or DISCOMFORT; Start at 18:45; Stop 07/06/16 at 18:44 Al Hydrox/Mg Hydrox/Simethicone (Mylanta) 30 ml Q4HP PRN PO HEARTBURN/ INDIGESTION; Start 06/06/16 at 18:45; Stop 07/06/16 at 18:44 Artificial Tears (Akwa Tears) 1 drop QID OU ; Start 06/07/16 at 13:00; Stop at 12:59 Magnesium Hydroxide (Milk Of Magnesia) 30 ml DAILYPRN PRN PO CONSTIPATION; Start 06/06/16 at 18:45; Stop 07/06/16 at 18:44 Miscellaneous (Unresolved Patient Own Med Order) SEE LABEL COMMENTS UNRESOLVED XX ; Start 06/07/16 at 00:01; Stop 06/07/16 at 14:24; Status DC Patient Own Medication (Patient'S Own Med) 1 DROP BID OU ; Start 06/07/16 at 09: 00; Stop 07/07/16 at 08:59 Trazodone HCl (Desyrel) 50 mg QHSP PRN PO INSOMNIA; Start 06/06/16 at 18:45; Stop 07/06/16 at 18:44 Allergies Coded Allergies: Amitriptyline (Unverified Allergy, Severe, SEVERE DEPRESSION; AMNESIA, 04/06) GME ATTESTATION My preceptor for this patient encounter was fully available. As needed, all aspects of the patient interview, examination, medical decision making process, and medical care plan development were reviewed and approved by the preceptor. Preceptor is aware and concurs with the plan as stated in the body of this note and will attest to such by his/her cosignature. VINAYAK BALDERAS DO Jun 11, 2016 17:04
[2016-06-11 18:00] VITALS: BP 143/79
[2016-06-12 06:47] VITALS: BP 107/56
[2016-06-12] MEDS: KETOTIFEN OU SCH ×2 (09:00→21:00)
[2016-06-12] MEDS: POLYVINYL ALCOHOL OPHTH SOLN 15 ML(LIQUITEARS) OU SCH ×4 (09:00→21:00)
--- NOTE | 2016-06-12 17:09 | IPNPDOC ---
[facility] Progress Note Progress Note DATE OF SERVICE: 06/12/16 HISTORY: The patient met with today. He did spend quite an amount of time discussing his discontent with the . He engaged much more playful and discussion about his symptoms and began to embrace the possibility that they could be due to her mental disorder. He alluded to some discord in his past and mentioned fruit packer. However, he would not elaborate more in depth on this as he appeared not to trust the provider not to speak about it. He was open to doing a dissociative experiences screening scale per disassociative identity disorder. He was curious as to what that meant if he had multiple personalities. He described that he really felt angry and that it "took a lot to get him angry". He described that he felt as though anger proceed most of his "blackout episodes". 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 He reported they described that the patient would act unusual and in a bizarre manner. He described an episode where he had attempted $100 to his friend for Wi-Fi when he factly "$30. Additionally he was noted to call his superior sergeant instead of "sir" in his "blackout" state. The staff noted that the patient has not attended groups. He generally remains inclusive to his room. He still interested in discharge. He has had no major events overnight. VITAL SIGNS: See below. NEW TEST RESULTS: None. CURRENT MEDICATIONS: See below. MENTAL STATUS EXAMINATION: Patient is a 26-year old male, who is pleasant cooperative with mild disheveled hair,. Speech: Is normal in rate volume and articulation. His speech is spontaneous and coherent. Language skills are intact. Thought processes including: Goal-directed. Thought content: Logical and linear. Abstract reasoning, and computation: Intact. Description of associations: Intact. Description of abnormal or psychotic thoughts: Denies any suicidal or homicidal ideation. Denies any auditory or visual hallucinations. Doesn't appear to be responding to internal stimuli.. Judgment: Fair. Insight: Fair. Orientation to time, place and person. Recent and remote memory: Immediate, short-term and long-term memory appear grossly intact. Attention span and concentration: Good. Language: Normal. Fund of knowledge: Adequate. Mood: "Fine". Affect: More euthymic as the conversation proceeds with a mason range. DIAGNOSES: 1. Unspecified dissociative disorder 2. Unspecified depressive disorder 3. Unspecified sleeping disorder ASSESSMENT: The patient a 26-year-old man presents with multiple episodes of dissociation and his dissociative experience questionnaire screens positive for dissociative disorders. MANAGEMENT PLAN: 1. Will precisely grade the dissociative experience screener with the patient so that he might understand more in depth 2. Continue to offer her when necessary trazodone 3. Continue inpatient stay as the patient, despite request discharge will need further follow-up scheduled in order to ensure safety discharge TIME SPENT: 30 minutes minutes. Vital Signs Vital Signs Date Time Temp Pulse Resp B/P Pulse Ox O2 Delivery O2 Flow Rate FiO2 06/12/16 06:47 95.7 0 16 107/56 06/06/16 17:43 96 Room Air Current Medications Current Medications Acetaminophen (Tylenol Tab) 650 mg Q6HP PRN PO HEADACHE or DISCOMFORT; Start at 18:45; Stop 07/06/16 at 18:44 Al Hydrox/Mg Hydrox/Simethicone (Mylanta) 30 ml Q4HP PRN PO HEARTBURN/ INDIGESTION; Start 06/06/16 at 18:45; Stop 07/06/16 at 18:44 Artificial Tears (Akwa Tears) 1 drop QID OU ; Start 06/07/16 at 13:00; Stop at 12:59 Magnesium Hydroxide (Milk Of Magnesia) 30 ml DAILYPRN PRN PO CONSTIPATION; Start 06/06/16 at 18:45; Stop 07/06/16 at 18:44 Miscellaneous (Unresolved Patient Own Med Order) SEE LABEL COMMENTS UNRESOLVED XX ; Start 06/07/16 at 00:01; Stop 06/07/16 at 14:24; Status DC Patient Own Medication (Patient'S Own Med) 1 DROP BID OU ; Start 06/07/16 at 09: 00; Stop 07/07/16 at 08:59 Trazodone HCl (Desyrel) 50 mg QHSP PRN PO INSOMNIA; Start 06/06/16 at 18:45; Stop 07/06/16 at 18:44 Allergies Coded Allergies: Amitriptyline (Unverified Allergy, Severe, SEVERE DEPRESSION; AMNESIA, 04/06) GME ATTESTATION My preceptor for this patient encounter was fully available. As needed, all aspects of the patient interview, examination, medical decision making process, and medical care plan development were reviewed and approved by the preceptor. Preceptor is aware and concurs with the plan as stated in the body of this note and will attest to such by his/her cosignature. VINAYAK BALDERAS DO Jun 12, 2016 17:09
[2016-06-12 18:00] VITALS: BP 125/73
[2016-06-13 06:00] VITALS: BP 116/66
[2016-06-13] MEDS: KETOTIFEN OU SCH ×2 (09:00→21:00)
[2016-06-13] MEDS: POLYVINYL ALCOHOL OPHTH SOLN 15 ML(LIQUITEARS) OU SCH ×4 (09:00→21:00)
[2016-06-13 18:00] VITALS: BP 134/61
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
[2016-06-14 06:26] VITALS: BP 138/90
[2016-06-14] MEDS: KETOTIFEN OU SCH (09:00)
[2016-06-14] MEDS: POLYVINYL ALCOHOL OPHTH SOLN 15 ML(LIQUITEARS) OU SCH (09:00)
--- NOTE | 2016-06-15 06:58 | DS.PDOC ---
[facility] Discharge Summary Discharge Summary DATE OF ADMISSION: Jun 06, 2016 at 17:35 DATE OF DISCHARGE: Jun 14, 2016 at 11:00 DISCHARGE DIAGNOSES: 1. Unspecified dissociative disorder. 2. Unspecified depressive disorder. 3. Unspecified sleeping disorder. REASON FOR ADMISSION: The patient was admitted from the medical floor after he had taken an overdose of sleeping pills. He described that he did not remember the events prior to this and that this was the last and several episodes of "blackouts", where the patient had tried both self injurious and suicidal behavior. CONSULTANTS INVOLVED: None TREATMENT AND PROGRESS ON THE UNIT : The patient was admitted from the medical floor and initially refused to be started on any psychiatric medication. It took quite some time for the patient to except to any degree that his situation could be that of a psychiatric illness. He eventually after multiple individual sessions was able to become more open about his thoughts and his feelings of judgment from his commanding officer is in the in general. There was also difficulties with another peer who was noted to be objectively very difficult and threatening to him. After she was discharged. She was not being much more euthymic and bright. 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 He was amenable to doing it dissociative experiences screening scale second edition, which he completed and indicated that the patient was positive for dissociative experiences likely in the high-grade PTSD and low-grade dissociative identity disorder. This was shared with the patient and he appeared to be more interested in pursuing comprehensive psychological testing. After the patient appeared to stabilize well and was social in the milieu discharge was discussed as he was interested in returning back to outpatient. HI command meeting was arranged and the patient was [facility] He required no refills or prescriptions. DISCHARGE ASSESSMENT: A 26-year-old man with what appears to be an unspecified dissociative disorder pulse into the high-grade PTSD versus low-grade dissociative identity disorder who is currently in active duty soldier. He has had sparse interactions with mental health and primarily appears to appear after a dissociative episode worrying cages in self-harm or suicidal behavior. He rapidly stabilized on the milieu with individual psychotherapy as well as group psychotherapy. He would likely do well with full psychological testing. MENTAL STATUS EXAMINATION ON DISCHARGE: Patient is a 26-year old male, who is pleasant, cooperative and good hygiene,. Speech is spontaneous and fluid. Language skills are intact. Thought processes including: Clear, logical and linear. Thought content: Future orientated focused on returning home. Abstract reasoning, and computation: Intact. Description of associations: Intact. Description of abnormal or psychotic thoughts: Denies any suicidal, homicidal ideation. Denies any auditory or visual hallucinations. Does not appear to be responding to internal stimuli. Endorses no bizarre or paranoid ideation.. Judgment: Fair. Insight: Fair. Orientation to alert and oriented 3. Recent and remote memory: Intact. Attention span and concentration: Good. Language: Normal. Fund of knowledge: Good. Mood: "Much better". Affect: Euthymic with a full affect. MEDICATIONS ON DISCHARGE: Trazodone 50 mg as needed at night, 7 tabs with several refills for insomnia PLAN/FOLLOWUP ARRANGEMENTS: The patient will follow-up with [facility] outpatient health. We recommend that the patient received full psychological testing is used both amenable and could find this highly useful. Her suspicion is that the patient has a dissociative disorder primarily the use of medications would most likely be not indicated and will most likely benefit from individual psychotherapy. The amount of time spent in the coordination of care for this patient was approximately 30 minutes. Medications Scheduled (Ketotifen Fumarate) 0.025 % Jass 1 DROP OU BID (Reported) Scheduled PRN Carboxymethylcellulose Sod (Refresh 1.4-0.6 %) 1 Ea Mari 1 EA OU QID PRN PRN DRY EYES (Reported) Trazodone HCl (Trazodone HCl) 50 Mg Tab #7 50 MG PO QHSP PRN PRN INSOMNIA Allergies Coded Allergies: Amitriptyline (Unverified Allergy, Severe, SEVERE DEPRESSION; AMNESIA, 04/06) GME ATTESTATION My preceptor for this patient encounter was fully available. As needed, all aspects of the patient interview, examination, medical decision making process, and medical care plan development were reviewed and approved by the preceptor. Preceptor is aware and concurs with the plan as stated in the body of this note and will attest to such by his/her cosignature. VINAYAK BALDERAS DO Jun 15, 2016 06:58
== END 2016-06-14 11:00 | disposition home or self-care (01) | DRG 880 ==
LOC: M PSY 17:35
PROVIDERS: ADMIT Psychiatry & Neurology Psychiatry; ATTEND Internal Medicine Addiction Medicine
DX: F44.9 Dissociative and conversion disorder, unspecified (principal); F32.9 Major depressive disorder, single episode, unspecified; H04.123 Dry eye syndrome of bilateral lacrimal glands; G47.9 Sleep disorder, unspecified; R55 Syncope and collapse; Z91.5 Personal history of self-harm; Z79.899 Other long term (current) drug therapy; Z88.8 Allergy status to other drugs, medicaments and biological substances

== ENCOUNTER → 2016-06-21 | Outpatient (CLI) | payer OTHER ==
[~2016-06-21] MED LIST changes: +TRAZO50TA PO
== END ==
LOC: M SLEEP 20:17
PROVIDERS: ATTEND Psychiatry & Neurology Neurology
DX: G47.419 Narcolepsy without cataplexy (principal)

== ENCOUNTER 2017-02-12 10:00 | Emergency (ER) | payer OTHER ==
[~2017-02-12] VITALS: Ht 170.2 cm; Wt 67.3 kg
[~2017-02-12 10:00] MED LIST changes: +DOXY100T2 PO; -DOXY10CA PO
[2017-02-12 10:01] VITALS: BP 145/91
[2017-02-12] MEDS ORDERED: CHIL5SUS9 (10:07)
== END 2017-02-12 10:39 | disposition home or self-care (01) ==
LOC: M ED 10:00
DX: K91.840 Postprocedural hemorrhage of a digestive system organ or structure following a digestive system procedure (principal); R04.0 Epistaxis